=== PATIENT | female | born 2000 | race Caucasian/White ===

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

== ENCOUNTER 2018-03-04 13:01 | Emergency (ER) | payer MEDICAID, OTHER ==
[2018-03-04 13:02] VITALS: BMI 30.4
[2018-03-04 13:23] VITALS: PULSE 109; TEMP 100.3; O2SAT 99
--- NOTE | 2018-03-04 14:09 | C.PDOC ---
History Of Present Illness 17 year old female presents to the ED for evaluation of sore throat associated with subjective fever and body aches for 3 days. Denies cough, shortness of breath, rhinorrhea, and any other associated symptoms. Time Seen by Provider: 03/04/18 13:42 Chief Complaint (Nursing): Fever History Per: Patient History/Exam Limitations: no limitations Onset/Duration Of Symptoms: Days Current Symptoms Are (Timing): Still Present Past Medical History Reviewed: Historical Data, Nursing Documentation, Vital Signs Vital Signs: Last Vital Signs Temp 100.3 F H 03/04/18 13:11 Pulse 109 H 03/04/18 13:11 Resp 181 H 03/04/18 13:11 BP Pulse Ox 99 03/04/18 13:11 - Medical History PMH: Asthma Family History: States: Unknown Family Hx - Social History Hx Tobacco Use: No Hx Alcohol Use: No Hx Substance Use: No - Immunization History Hx Tetanus Toxoid Vaccination: No Hx Influenza Vaccination: No Hx Pneumococcal Vaccination: No Review Of Systems Except As Marked, All Systems Reviewed And Found Negative. Constitutional: Positive for: Fever (subjective. ), Other (body aches. ) ENT: Positive for: Throat Pain (sore. ). Negative for: Nose Discharge Respiratory: Negative for: Cough, Shortness of Breath Physical Exam - Physical Exam Appears: Well, Non-toxic, No Acute Distress Skin: Normal Color, Warm, Dry Head: Atraumatic, Normacephalic Eye(s): bilateral: Normal Inspection Ear(s): Bilateral: Normal Throat: Erythema, No Exudate Neck: Normal ROM, Supple Chest: Symmetrical, No Deformity Cardiovascular: Rhythm Regular, No Murmur Respiratory: Normal Breath Sounds, No Rales, No Rhonchi, No Wheezing Gastrointestinal/Abdominal: Normal Exam, Soft, No Tenderness Extremity: Normal ROM (x4) Neurological/Psych: Oriented x3, Normal Speech, Normal Cognition ED Course And Treatment O2 Sat by Pulse Oximetry: 99 (RA) Pulse Ox Interpretation: Normal Medical Decision Making Medical Decision Making: Progress/Update: Patient stable for discharge home. Prescribed Motrin, Amoxil, and Tylenol. Advised to follow up with PMD within 1-2 days. Disposition - Disposition Referrals: [facility] [Outside] Disposition: HOME/ ROUTINE Disposition Time: 14:15 Condition: STABLE Additional Instructions: Follow up with the medical doctor within 1-2 days, Return if worsened. Prescriptions: Amoxicillin [Amoxil 500 mg Cap] 500 mg PO TID #30 cap Ibuprofen [Motrin] 600 mg PO TID #21 tab Instructions: Strep Throat (DC) Forms: [employer] (Citizen Of [place]) Print Language: MOLDOVAN - Clinical Impression Clinical Impression: Pharyngitis - PA / FREELANCE DATA ENTRY / Resident Statement MD/DO has reviewed & agrees with the documentation as recorded. - Scribe Statement The provider has reviewed the documentation as recorded by the Scribe (Ashanti Chavez) All medical record entries made by the Scribe were at my direction and personally dictated by me. I have reviewed the chart and agree that the record accurately reflects my personal performance of the history, physical exam, medical decision making, and the department course for this patient. I have also personally directed, reviewed, and agree with the discharge instructions and disposition.
[2018-03-04 14:33] VITALS: RESP 18
== END 2018-03-04 14:32 | disposition home or self-care (01) ==
LOC: C.ER 13:01
DX: J02.9 Acute pharyngitis, unspecified (principal)